=== PATIENT | female | born 1990 | race Caucasian/White ===

== ENCOUNTER 2018-03-05 13:57 | Emergency (ER) | payer MEDICAID ==
[2018-03-05 14:49] LABS: Absolute Lymphocytes (CBC) 0.6 K/uL (0.7-4.9); Absolute Monocytes 0.3 K/uL (0.1-1.3); Absolute Neutrophil 3.4 K/uL (1.8-8.0); Basophils % 0.2 % (0-1.3); Eosinophils % 2.7 % (0-4.4); Hematocrit 27.4 % (36.0-45.0); Lymphocytes % 12.7 % (15.3-44.8); MCH 26.8 pg (27.0-35.0); MCV 79.9 fL (80-100); MPV 7.6 fL (7.6-11.3); Monocytes % 7.3 % (3.3-12.3); RBC Red Blood Cell Count 3.43 M/uL (3.86-4.86)
[2018-03-05 15:12] LABS: Urine Blood TRACE (NEG); Urine Glucose NEGATIVE (NEG); Urine Protein NEGATIVE (NEG); Urine Specific Gravity 1.015 (1.005-1.030)
[2018-03-05 16:26] LABS: Urine Bacteria <20 /HPF (<20); Urine Culture Reflex Order NOT NEEDED; Urine RBC <5 /HPF (NONE SEEN)
--- NOTE | 2018-03-05 16:47 | EDPHYS ---
Physician Documentation [facility] Name: Jade Alvarado Age: 27 yrs Sex: Female : 1990 Arrival Date: 03/05/2018 Time: 14:01 Bed 24 Private MD: None, None ED Physician Panfilo Sanford HPI: 03/05 15:30 This 27 yrs old Female presents to ER via Ambulatory with complaints of Post pm1 Problem. 15:30 The patient presents with lightheadedness, swelling to feet bilaterally. Onset: The pm1 symptoms/episode began/occurred today. Context: occurred at home, occurred while the patient was eating lunch. just prior to the episode the patient experienced no apparent symptoms. Modifying factors: The symptoms are alleviated by nothing, the symptoms are aggravated by changing position. Associated signs and symptoms: Pertinent negatives: abdominal pain, blurred vision, chest pain, diaphoresis, focal weakness, headache, nausea, numbness, shortness of breath, tingling, vomiting. Severity of symptoms: in the emergency department the symptoms lightheartedness resolved. Patient's baseline: Neuro: alert and fully oriented, Motor: no deficits, Ambulation: walks without assistance, Speech: normal. The patient has not experienced similar symptoms in the past. The patient has been recently seen by a physician: Patient with 3 days ago. No complications with surgery. Reports gestational diabetes managed with dietary. 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 - Social history:: Smoking status: Patient/guardian denies using tobacco. - Ebola Screening: : No symptoms or risks identified at this time. ROS: 15:30 Constitutional: Negative for fever, chills, and weight loss, Eyes: Negative for injury, pm1 pain, redness, and discharge, ENT: Negative for injury, pain, and discharge, Neck: Negative for injury, pain, and swelling, Respiratory: Negative for shortness of breath, cough, wheezing, and pleuritic chest pain, Abdomen/GI: Negative for abdominal pain, nausea, vomiting, diarrhea, and constipation, Back: Negative for injury and pain, : Negative for injury, bleeding, discharge, and swelling, MS/Extremity: Negative for injury and deformity, Skin: Negative for injury, rash, and discoloration. 15:30 Cardiovascular: Positive for swelling to ankles and feet bilaterally. 15:30 Neuro: Positive for dizziness, Negative for altered mental status, headache, numbness, tingling, weakness. Exam: 15:30 Constitutional: This is a well developed, well nourished patient who is awake, alert, pm1 and in no acute distress. Head/Face: Normocephalic, atraumatic. Eyes: Pupils equal round and reactive to light, extra-ocular motions intact. Lids and lashes normal. Conjunctiva and sclera are non-icteric and not injected. Cornea within normal limits. Periorbital areas with no swelling, redness, or edema. ENT: Nares patent. No nasal discharge, no septal abnormalities noted. Tympanic membranes are normal and external auditory canals are clear. Oropharynx with no redness, swelling, or masses, exudates, or evidence of obstruction, uvula midline. Mucous membranes moist. Neck: Trachea midline, no thyromegaly or masses palpated, and no cervical lymphadenopathy. Supple, full range of motion without nuchal rigidity, or vertebral point tenderness. No Meningismus. Chest/axilla: Normal chest wall appearance and motion. Nontender with no deformity. No lesions are appreciated. Cardiovascular: Regular rate and rhythm with a normal S1 and S2. No gallops, murmurs, or rubs. Normal PMI, no JVD. No pulse deficits. Respiratory: Lungs have equal breath sounds bilaterally, clear to auscultation and percussion. No rales, rhonchi or wheezes noted. No increased work of breathing, no retractions or nasal flaring. Abdomen/GI: Soft, non-tender, with normal bowel sounds. No distension or tympany. No guarding or rebound. No evidence of tenderness throughout. 15:30 Back: No spinal tenderness. No costovertebral tenderness. Full range of motion. Skin: Warm, dry with normal turgor. Normal color with no rashes, no lesions, and no evidence of cellulitis. MS/ Extremity: Pulses equal, no cyanosis. Neurovascular intact. Full, normal range of motion. 15:30 Abdomen/GI: Inspection: Patient with clean dressing over scar. No drainage, redness, warmth present surrounding dressing, Bowel sounds: normal, Palpation: abdomen is soft and non-tender. 15:30 Neuro: Orientation: is normal, Mentation: is normal, Cranial nerves: CN II- XII are normal as tested, Cerebellar function: normal finger to nose testing, heel to williamson testing is normal, Motor: is normal, moves all fours, Sensation: is normal, no obvious gross deficits, Gait: is steady, at a normal pace, without difficulty. Vital Signs: 14:07 BP 127 / 81; Pulse 98; Resp 16 S; Temp 98.6(O); Pulse Ox 98% on R/A; Weight 56.7 kg aa5 (R); Height 4 ft. 11 in. (149.86 cm) (R); Pain 0/10; 14:23 BP 139 / 80 LA Supine (auto/reg); Pulse 80; Pulse Ox 97% on R/A; jp3 14:25 BP 142 / 81 LA Sitting (auto/reg); Pulse 97; Pulse Ox 97% on R/A; jp3 14:27 BP 147 / 91 LA Standing (auto/reg); Pulse 96; Pulse Ox 100% on R/A; jp3 14:50 BP 145 / 91; Pulse 92; Resp 17; Pulse Ox 99% on R/A; kr2 16:08 BP 134 / 88; Pulse 72; Resp 17; Pulse Ox 98% on R/A; kr2 17:37 BP 135 / 83; Pulse 78; Resp 18; Pulse Ox 98% ; kr2 14:07 Body Mass Index 25.25 (56.70 kg, 149.86 cm) aa5 MDM: 14:11 Patient medically screened. pm1 16:44 Data reviewed: vital signs. Data interpreted: Pulse oximetry: on room air is 98 %. pm1 Interpretation: normal. Counseling: I had a detailed discussion with the patient and/or guardian regarding: the historical points, exam findings, and any diagnostic results supporting the discharge/admit diagnosis, lab results, the need for outpatient follow up, to return to the emergency department if symptoms worsen or persist or if there are any questions or concerns that arise at home. 03/05 14:29 Order name: CBC with Diff; Complete Time: 15:13 pm1 03/05 14:29 Order name: BMP; Complete Time: 15:49 pm1 03/05 14:29 Order name: Urine Microscopic Only; Complete Time: 16:29 pm1 03/05 15:03 Order name: Urine Dipstick--Ancillary (enter results); Complete Time: 15:13 eb 03/05 15:03 Order name: Urine --Ancillary (enter results); Complete Time: 15:13 eb 03/05 14:29 Order name: IV Saline Lock; Complete Time: 14:49 pm1 03/05 14:29 Order name: Urine Dipstick-Ancillary (obtain specimen); Complete Time: 14:59 pm1 03/05 14:29 Order name: Orthostatic Blood Pressure; Complete Time: 14:49 pm1 03/05 14:40 Order name: EKG; Complete Time: 14:41 pm1 03/05 14:40 Order name: EKG - Nurse/Tech; Complete Time: 14:49 pm1 Administered Medications: 15:59 Drug: NS 0.9% 1000 ml Route: IV; Rate: 1000 ml; Site: right forearm; kr2 17:36 Follow up: Response: No adverse reaction; IV Status: Completed infusion kr2 Point of Care Testing: Blood Glucose: 14:17 Blood Glucose: 97 mg/dL; jp3 Ranges: Critical Glucose Levels:Adult <50 mg/dl or >400 mg/dl <40 mg/dl or >180 mg/dl Disposition: 18:50 Co-signature as Attending Physician, Panfilo Sanford MD. rn Disposition: 03/05/18 16:47 Discharged to Home. Impression: Anemia, unspecified, Dehydration. - Condition is Stable. - Medication Reconciliation Form, Thank You Letter, Antibiotic Education, Prescription Opioid Use form. - Follow up: Emergency Department; When: As needed; Reason: Worsening of condition. Follow up: Private Physician; When: 2 - 3 days; Reason: Recheck today's complaints, Continuance of care, Re-evaluation by your physician. - Problem is new. - Symptoms have improved. Signatures: Dispatcher [employer] EDMS Panfilo Sanford MD MD rn Calderon, Audri, RN RN aa5 Lázaro Franco, ADULT CROSSING GUARD ADULT CROSSING GUARD pm1 Juany Conde RN RN kr2 Corrections: (The following items were deleted from the chart) 17:39 16:47 03/05/2018 16:47 Discharged to Home. Impression: Anemia, unspecified; kr2 Dehydration. Condition is Stable. Forms are Medication Reconciliation Form, Thank You Letter, Antibiotic Education, Prescription Opioid Use. Follow up: Emergency Department; When: As needed; Reason: Worsening of condition. Follow up: Private Physician; When: 2 - 3 days; Reason: Recheck today's complaints, Continuance of care, Re-evaluation by your physician. Problem is new. Symptoms have improved. pm1
--- NOTE | 2018-03-05 16:47 | ER ---
Nurse's Notes [facility] Name: Jade Alvarado Age: 27 yrs Sex: Female : 1990 Arrival Date: 03/05/2018 Time: 14:01 Bed 24 Private MD: None, None Diagnosis: Anemia, unspecified;Dehydration Presentation: 03/05 14:05 Presenting complaint: Patient states: "I had a on Wednesday and today I've been aa5 feeling like I want to pass out since around lunch time and my legs are swollen". Pt reports mild vaginal bleeding. Transition of care: patient was not received from another setting of care. Onset of symptoms was March 05, 2018. Risk Assessment: Do you want to hurt yourself or someone else? Patient reports no desire to harm self or others. Initial Sepsis Screen: Does the patient meet any 2 criteria? No. Patient's initial sepsis screen is negative. Does the patient have a suspected source of infection? No. Patient's initial sepsis screen is negative. Care prior to arrival: None. 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 - Social history:: Smoking status: Patient/guardian denies using tobacco. - Ebola Screening: : No symptoms or risks identified at this time. Screenin:34 Abuse screen: Denies threats or abuse. Denies injuries from another. Nutritional kr2 screening: No deficits noted. Tuberculosis screening: No symptoms or risk factors identified. Fall Risk IV access (20 points). Gait- Normal/Bed Rest/Wheelchair (0 pts). Assessment: 14:29 General: Appears in no apparent distress. comfortable, well groomed, well developed, kr2 well nourished, Behavior is calm, cooperative, appropriate for age. Pain: Denies pain. Neuro: Level of Consciousness is awake, alert, obeys commands, Oriented to person, place, time, situation, Appropriate for age. Neuro: Reports dizziness, since today. Cardiovascular: Heart tones S1 S2 present Capillary refill < 3 seconds in bilateral fingers Patient's skin is warm and dry. Edema is 1+ to left foot and right foot pitting to left foot and right foot Rhythm is regular. Respiratory: Airway is patent Respiratory effort is even, unlabored, Respiratory pattern is regular, symmetrical. GI: Abdomen is flat, non-distended, Patient currently denies nausea, vomiting. : Reports recent , bleeding is "red and almost stopped". EENT: Oral mucosa is moist. Derm: Skin is healthy with good turgor, Skin is dry, Skin is pale, pink, Skin temperature is warm incision with dressing clean dry and intact. No redness or tenderness to surrounding skin. Patient states her doctor told her to leave the dressing in place until she follows up with him. Musculoskeletal: Circulation, motion, and sensation intact. 15:30 Reassessment: Patient appears in no apparent distress at this time. Patient and/or kr2 family updated on plan of care and expected duration. Pain level reassessed. Patient is alert, oriented x 3, equal unlabored respirations, skin warm/dry/pink. Patient states feeling better. 17:38 Reassessment: Patient appears in no apparent distress at this time. Patient and/or kr2 family updated on plan of care and expected duration. Pain level reassessed. Patient is alert, oriented x 3, equal unlabored respirations, skin warm/dry/pink. Swelling to bilateral feet decreased since arrival Patient states feeling better. Patient states symptoms have improved. Vital Signs: 14:07 BP 127 / 81; Pulse 98; Resp 16 S; Temp 98.6(O); Pulse Ox 98% on R/A; Weight 56.7 kg aa5 (R); Height 4 ft. 11 in. (149.86 cm) (R); Pain 0/10; 14:23 BP 139 / 80 LA Supine (auto/reg); Pulse 80; Pulse Ox 97% on R/A; jp3 14:25 BP 142 / 81 LA Sitting (auto/reg); Pulse 97; Pulse Ox 97% on R/A; jp3 14:27 BP 147 / 91 LA Standing (auto/reg); Pulse 96; Pulse Ox 100% on R/A; jp3 14:50 BP 145 / 91; Pulse 92; Resp 17; Pulse Ox 99% on R/A; kr2 16:08 BP 134 / 88; Pulse 72; Resp 17; Pulse Ox 98% on R/A; kr2 17:37 BP 135 / 83; Pulse 78; Resp 18; Pulse Ox 98% ; kr2 14:07 Body Mass Index 25.25 (56.70 kg, 149.86 cm) aa5 ED Course: 14:01 Patient arrived in ED. sb2 14:01 None, None is Private Physician. sb2 14:06 Triage completed. aa5 14:06 Arm band placed on. aa5 14:10 Lázaro Franco, [place] is PHCP. pm1 14:10 Panfilo Sanford MD is Attending Physician. pm1 14:17 Bed in low position. Call light in reach. Side rails up X 1. Warm blanket given. Pillow jp3 given. Pulse ox on. NIBP on. 14:35 Initial lab(s) drawn, by me, sent to lab. Inserted saline lock: 22 gauge in right jp3 forearm, using aseptic technique. Blood collected. 14:40 Urine collected: clean catch specimen, clear, ibis colored, Amount Voided: 60mL. jp3 14:57 EKG done, by ED staff, reviewed by Lázaro Franco NP. jp3 14:59 Urine Microscopic Only Sent. jp3 14:59 BMP Sent. jp3 15:59 Juany Conde, RN is Primary Nurse. kr2 16:09 No provider procedures requiring assistance completed. kr2 17:37 IV discontinued, intact, bleeding controlled, No redness/swelling at site. Pressure kr2 dressing applied. Administered Medications: 15:59 Drug: NS 0.9% 1000 ml Route: IV; Rate: 1000 ml; Site: right forearm; kr2 17:36 Follow up: Response: No adverse reaction; IV Status: Completed infusion kr2 Point of Care Testing: Blood Glucose: 14:17 Blood Glucose: 97 mg/dL; jp3 Ranges: Outcome: 16:47 Discharge ordered by . pm1 17:36 Discharged to home ambulatory, with family. kr2 17:36 Condition: good 17:36 Discharge instructions given to patient, family, Instructed on discharge instructions, follow up and referral plans. Demonstrated understanding of instructions, follow-up care. 17:39 Patient left the ED. kr2 Signatures: Lisa Brownlee RN RN aa5 Lázaro Franco, GEOTHERMAL POWERPLANT MECHANIC GEOTHERMAL POWERPLANT MECHANIC pm1 Juany Conde RN RN kr2 Johana Cuevas sb2 Harshal Cyr jp3 Corrections: (The following items were deleted from the chart) 14:50 14:49 Reassessment: sobeida vidales
[2018-03-05] MEDS ORDERED: NA CHLORIDE 0.9% 1,000 ML ONE (17:02)
--- NOTE | 2018-03-06 10:22 | EKG ---
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
== END 2018-03-05 17:39 | disposition home or self-care (01) ==
LOC: ER 13:57
DX: O90.81 Anemia of the puerperium (principal); D64.9 Anemia, unspecified; E86.0 Dehydration; Z88.6 Allergy status to analgesic agent; Z91.018 Allergy to other foods
CPT/HCPCS: 36415; 80048; 81003; 81015; 81025; 82962; 85025; 93005; 96360; 96361; 99284; J7030

== ENCOUNTER 2023-03-07 09:57 | Emergency (ER) | payer OTHER ==
--- OUTSIDE RECORDS SUMMARY | 2023-03-07 10:01 | XMS REPORT | Continuity of Care Document ---
:1990 Author Organization [facility] t Address [address] [facility] [address] [place] [id number] Care Team Providers Name Role Phone Pcp, Patient Does Not Have A Primary Care Physician [id number] DORY URBAN Attending Clinician Unavailable Rajni LOVE, Dory Villar Attending Clinician Pob, Ad[facility] Lab Main Attending Clinician Unavailable AIDEE BOJORQUEZ Attending Clinician Unavailable Aidee Bojorquez MD Attending Clinician [phone] Doctor Unassigned, [place] Attending Clinician Unavailable GEORGETTE Attending Clinician Unavailable Rosemary Garcia Attending Clinician Jing Lomeli MD Attending Clinician JING LOMELI Attending Clinician Unavailable Robert Lawson DO Attending Clinician Celena Page MD Attending Clinician Watson Santoyo MD Attending Clinician Jordan GLASS, Oksana Fischer Attending Clinician Unavailable GEORGETTE Admitting Clinician Unavailable Payers Payer Name Policy Type Policy Number Effective Date Expiration Date Critical access hospital [id number] 2023 [facility] [place] ST[place] 00:00:00 [place] [facility] [place] [id number] 2023 00:00:00 [facility] [id number] 2017 2018 CHILDREN'S STAR 00:00:00 00:00:00 (MEDICAID HMO) Problems Condition Condition Condition Status Onset Resolution Last Treating Co mments Source Name Details Category Date Date Treatment Clinician Date Incomplete Incomplete Disease Active 2022-05 U nivers spontaneou spontaneou 0-05 [place] [facility] Supervisio Supervisio Disease Active U nivers n of high n of high 02-22 ity of risk risk 00:00: [place] [facility] in third in third Branch trimester trimester GDM, class GDM, class Disease Active U nivers A1 A1 02-22 ity of 00:00: [place] [facility] Not immune Not immune Disease Active U nivers to rubella to rubella 02-22 it y of 00:00: [place] 00 [facility] Allergies, Adverse Reactions, Alerts Allergy Allergy Status Severity Reaction(s) Onset Inactive Treating Comm ents Source Name Type Date Date Clinician Hydrocod Propensi Active Hives 2017-05 Univer s one ty to 0-02 ity of adverse 00:00: [place] reaction [facility] HYDROCOD DRUG Active Hives 2017-05 Univers ONE INGREDI 0-02 ity of 00:00: [place] 00 [facility] Gluten Propensi Active Shortness of Un svitlana ty to Breath 25 ity of adverse 00:00: [place] reaction 00 [facility] CODEINE DRUG Active Hives Univers INGREDI 9-25 ity of 00:00: [place] 00 [facility] GLUTEN DRUG Active Rash Univers INGREDI 9- ity of 00:00: [place] 00 [facility] Codeine Propensi Active Nausea Univers ty to and/or 25 ity of adverse Vomiting 00:00: [place] reaction 00 [facility] Social History Social Habit Start Date Stop Date Quantity Comments Source Sexual orientation [facility]iver [facility] ASSERTION [facility] Exposure to Not sure University of SARS-CoV-2 (event) [facility] Alcohol intake 2023-03-04 2023-03-04 Current University of 00:00:00 00:00:00 non-drinker of [facility] alcohol Branch (finding) History of Social 2023-02-18 2023-02-18 Univers ity of function 00:00:00 00:00:00 [facility] Tobacco use and 2023-02-18 2023-02-18 Smokeless Universit y of exposure 00:00:00 00:00:00 tobacco non-user [facility] Sex Ass[birth year] At [birth year] Universit y of 00:00:00 00:00:00 [facility] Smoking Status Start Date Stop Date Source Never smoked tobacco [facility] Medications Ordered Filled Start Stop Current Ordering Indication Dosage Frequency Signature Comments Components Source Medication Medication Date Date Medication? Clinician (SIG) Name Name cefdinir 2022- Yes [id number] 300mg Take 1 U nivers 300 mg 9-03-08 capsule by ity of capsule 00:00: 04:59 mouth [place] 00 :00 every 12 Medical (twelve) Branch hours for 10 days. cefdinir 2022- Yes [id number] 300mg Take 1 U nivers 300 mg 9-03-08 capsule by ity of capsule 00:00: 04:59 mouth [place] 00 :00 every 12 Medical (twelve) Branch hours for 10 days. cefdinir 2022- Yes [id number] 300mg Take 1 U nivers 300 mg -03-08 capsule by ity of capsule 00:00: 04:59 mouth [place] 00 :00 every 12 Medical (twelve) Branch hours for 10 days. cefdinir 2022- Yes [id number] 300mg Take 1 U nivers 300 mg 9-03-08 capsule by ity of capsule 00:00: 04:59 mouth [place] 00 :00 every 12 Medical (twelve) Branch hours for 10 days. cefdinir 2022- Yes [id number] 300mg Take 1 U nivers 300 mg -03-08 capsule by ity of capsule 00:00: 04:59 mouth [place] 00 :00 every 12 Medical (twelve) Branch hours for 10 days. PNV 2022- No Take by Univers no.95/[place] 02-18 mouth. ity o f us 10:04: 00:00 [place] fum/folic 03 :00 Medical ac Branch ( ORAL) Yes Take by Univer s vit/iron 02-18 mouth. ity of fum/folic 09:50: [place] ac 45 Medical ( 1 Branch PLUS 1 ORAL) Yes Take by Univer s vit/iron 9-21 mouth. ity of fum/folic 09:50: [place] [id number] Medical ( 1 Branch PLUS 1 ORAL) Yes Take by Univer s vit/iron 9-21 mouth. ity of fum/folic 09:50: [place] [id number] Medical ( 1 Branch PLUS 1 ORAL) Yes Take by Univer s vit/iron 9-21 mouth. ity of fum/folic 09:50: [place] [id number] Medical ( 1 Branch PLUS 1 ORAL) Yes Take by Univer s vit/iron 9-21 mouth. ity of fum/folic 09:50: [place] [id number] Medical ( 1 Branch PLUS 1 ORAL) Yes Take by Univer s vit/iron 9-21 mouth. ity of fum/folic 09:50: [place] [id number] Medical ( 1 Branch PLUS 1 ORAL) Yes Take by Univer s vit/iron 9-21 mouth. ity of fum/folic 09:50: [place] [id number] Medical ( 1 Branch PLUS 1 ORAL) Yes Take by Univer s vit/iron 9-21 mouth. ity of fum/folic 09:50: [place] [id number] Medical ( 1 Branch PLUS 1 ORAL) Yes Take by Univer s vit/iron 9-21 mouth. ity of fum/folic 09:50: [place] [id number] Medical ( 1 Branch PLUS 1 ORAL) Yes Take by Univer s vit/iron 9-21 mouth. ity of fum/folic 09:50: [place] [id number] Medical ( 1 Branch PLUS 1 ORAL) Yes Take by Univer s vit/iron 9-21 mouth. ity of fum/folic 09:50: [place] [id number] Medical ( 1 Branch PLUS 1 ORAL) triamcinolo 2020- No [id number] 40mg U nivers ne 12-15 ity of acetonide 23:00: 21:52 [place] (KENALOG) 00 :00 Medical injection Branch 40 mg triamcinolo 2020- No [id number] 40mg 40 mg, Univers ne 12-15 Intramuscu ity of acetonide 23:00: 21:52 [place], ONCE, [place] (KE[place]LOG) 00 :00 1 dose, Medical injection Sun Branch 40 mg 12/15/20 at 1800, Routine hydrOXYzine 2020- No [id number] 25mg Take 1 Univers 25 mg 12-15-29 tablet by ity of tablet 00:00: 04:59 mouth [place] 00 :00 every 6 Medical (six) Branch hours as needed for Itching for up to 10 days. triamcinolo 2020- No [id number] Apply to [facility] ne 12-15 07-24 area(s) 2 ity of acetonide 00:00: 04:59 (two) [place] 0.1 % 00 :00 times Medical ointment daily for Branch 5 days. cephALEXin Yes Univers 500 mg 7-15 ity of capsule 00:00: [place] 00 Medical Branch cephALEXin Yes Univers 500 mg 7-15 ity of capsule 00:00: [place] Medical [place] cephALEXin 2022- No Univer s 500 mg 7-15 - ity of capsule 00:00: 00:00 [place] 00 :00 Medical Branch dexamethaso 2019-05- No 10mg 10 mg, Uni vers ne 0-12 10-12 Oral, ity of (DECADRON 14:15: 13:05 ONCE, 1 [place] PHOSPHATE[place] 00 :00 dose, Mon Medi jessica injection 03/11/20 Branch 10 mg at 0915, Routine hydrOXYzine 2019-05 Yes [id number] 10mg Take 1 Univers 10 mg 0-12 tablet by ity of tablet 00:00: mouth [place] 00 every 6 Medical (six) Branch hours. hydrOXYzine 2019-05 Yes [id number] 10mg Take 1 Univers 10 mg 0-12 tablet by ity of tablet 00:00: mouth [place] 00 every 6 Medical (six) Branch hours. hydrOXYzine 2020- Yes [id number] 10mg Take 1 Univers 10 mg 0-12 tablet by ity of tablet 00:00: mouth [place] 00 every 6 Medical (six) Branch hours. hydrOXYzine 2019-05- No [id number] 10mg Take 1 Univers 10 mg 0-12 -21 tablet by ity of tablet 00:00: 00:00 mouth [place] 00 :00 every 6 Medical (six) Branch hours. PNV 2019-0 Yes Take by Univers no.95/[place] 8-19 mouth. ity of us 18:23: [place] fum/folic 59 Medical ac Branch ( ORAL) PNV 2019-0 Yes Take by Univers no.95/[place] 8-19 mouth. ity of us 18:23: [place] fum/folic 59 Medical ac Branch ( ORAL) PNV 2019-0 Yes Take by Univers no.95/[place] 8-19 mouth. ity of us 18:23: [place] fum/folic 59 Medical ac Branch ( ORAL) PNV 2019-0 Yes Take by Univers no.95/[place] 8-19 mouth. ity of us 18:23: [place] fum/folic 59 Medical ac Branch ( ORAL) PNV 2019-0 Yes Take by Univers no.95/[place] 8-19 mouth. ity of us 13:23: [place] fum/folic 59 Medical ac Branch ( ORAL) PNV 2018- Yes Take by Univers no.95/[place] 1-12 mouth. ity of us 15:47: [place] fum/folic 12 Medical ac Branch ( ORAL) PNV 2018- Yes Take by Univers no.95/[place] 1-12 mouth. ity of us 15:47: [place] fum/folic 12 Medical ac Branch ( ORAL) Immunizations Ordered Filled Date Status Comments Source Immunization Name Immunization Name Influenza Virus 2018-04-11 Completed Universit y of Vaccine Quad IM 3+ 00:00:00 [facility] Influenza Virus 2018-04-11 Completed Universit y of Vaccine Quad IM 3+ 00:00:00 [facility] Influenza Virus 2018-04-11 Completed Universit y of Vaccine Quad IM 3+ 00:00:00 [facility] Influenza Virus 2018-04-11 Completed Universit y of Vaccine Quad IM 3+ 00:00:00 [facility] Influenza Virus 2018-04-11 Completed Universit y of Vaccine Quad IM 3+ 00:00:00 [facility] Influenza Virus 2018-04-11 Completed Universit y of Vaccine Quad IM 3+ 00:00:00 [facility] TDAP 2017-12-08 Completed University of 00:00:00 [facility] Tdap 2017-12-08 Completed University of 00:00:00 [facility] Tdap 2017-12-08 Completed University of 00:00:00 [facility] Tdap 2017-12-08 Completed University of 00:00:00 [facility] Branch Tdap 2017-12-08 Completed University of 00:00:00 [facility] TDAP 2017-12-08 Completed University of 00:00:00 [facility] TDAP Unknown Completed [facility] Influenza Virus Unknown Completed Universit y of Vaccine Quad IM 3+ [facility] TDAP Unknown Completed [facility] Influenza Virus Unknown Completed Universit y of Vaccine Quad IM 3+ [facility] TDAP Unknown Completed [facility] Influenza Virus Unknown Completed Universit y of Vaccine Quad IM 3+ [facility] TDAP Unknown Completed [facility] Influenza Virus Unknown Completed Universit y of Vaccine Quad IM 3+ [facility] TDAP Unknown Completed [facility] Influenza Virus Unknown Completed Universit y of Vaccine Quad IM 3+ [facility] TDAP Unknown Completed [facility] Influenza Virus Unknown Completed Universit y of Vaccine Quad IM 3+ [facility] TDAP Unknown Completed [facility] Influenza Virus Unknown Completed Universit y of Vaccine Quad IM 3+ [facility] TDAP Unknown Completed [facility] Influenza Virus Unknown Completed Universit y of Vaccine Quad IM 3+ [facility] TDAP Unknown Completed [facility] Influenza Virus Unknown Completed Universit y of Vaccine Quad IM 3+ [facility] TDAP Unknown Completed [facility] Influenza Virus Unknown Completed Universit y of Vaccine Quad IM 3+ [facility] TDAP Unknown Completed [facility] Influenza Virus Unknown Completed Universit y of Vaccine Quad IM 3[facility] TDAP Unknown Completed [facility] Influenza Virus Unknown Completed Universit y of Vaccine Quad IM 3[facility] Vital Signs Vital Name Observation Time Observation Value Comments Source Systolic blood 2023-03-04 21:11:00 130 mm[Hg] Univer sity of pressure [facility] Diastolic blood 2023-03-04 21:11:00 82 mm[Hg] Unive rsity of pressure [facility] Heart rate 2023-03-04 21:11:00 78 /min Universi [facility] [place] Body temperature 2023-03-04 21:11:00 36.78 Teresa Univ ers[facility] Respiratory rate 2023-03-04 21:11:00 17 /min [facility] Body height 2023-03-04 21:11:00 149.9 cm Universi ty of [place] [facility] Body weight 2023-03-04 21:11:00 57.153 kg Universi ty of [place] [facility] BMI 2023-03-04 21:11:00 25.45 kg/m2 Universi ty of [facility] Branch Systolic blood 2023-02-25 22:49:00 133 mm[Hg] Univer sity of pressure [facility] Branch Diastolic blood 2023-02-25 22:49:00 73 mm[Hg] Unive rsity of pressure [facility] Branch Heart rate 2023-02-25 22:49:00 90 /min Universi ty of [facility] Body temperature 2023-02-25 22:49:00 37 Teresa Univ ersity of [facility] Branch Respiratory rate 2023-02-25 22:49:00 17 /min Univ ersity of [facility] Body height 2023-02-25 22:49:00 149.9 cm Universi ty of [place] [facility] Body weight 2023-02-25 22:49:00 58.06 kg Universi ty of [place] [facility] BMI 2023-02-25 22:49:00 25.85 kg/m2 Universi ty of [facility] Branch Oxygen saturation in 2023-02-25 22:49:00 100 /min [facility] Arterial blood by [facility] Pulse oximetry Branch Systolic blood 2023-02-18 14:49:00 122 mm[Hg] Univer sity of pressure [facility] Diastolic blood 2023-02-18 14:49:00 71 mm[Hg] Unive rsity of pressure [facility] Branch Heart rate 2023-02-18 14:49:00 80 /min Universi ty of [facility] Branch Body temperature 2023-02-18 14:49:00 36.61 Teresa Univ ersity of [facility] Respiratory rate 2023-02-18 14:49:00 18 /min Univ ersity of [facility] Branch Body height 2023-02-18 14:49:00 160 cm Universi ty of [place] [facility] Body weight 2023-02-18 14:49:00 58.514 kg Universi ty of [facility] Branch BMI 2023-02-18 14:49:00 22.85 kg/m2 Universi ty of [place] [facility] Systolic blood 2020-12-15 21:43:00 125 mm[Hg] Univer sity of pressure [place] [facility] Diastolic blood 2020-12-15 21:43:00 79 mm[Hg] Unive rsity of pressure [place] [facility] Heart rate 2020-12-15 21:43:00 78 /min Universi ty of [place] [facility] Body temperature 2020-12-15 21:43:00 36.83 Teresa Univ ersity of [place] [facility] Respiratory rate 2020-12-15 21:43:00 16 /min Univ ersity of [place] [facility] Body height 2020-12-15 21:43:00 149.9 cm Universi ty of [place] [facility] Body weight 2020-12-15 21:43:00 49.896 kg Universi ty of [place] [facility] BMI 2020-12-15 21:43:00 22.22 kg/m2 Universi ty of [place] [facility] Oxygen saturation in 2020-12-15 21:43:00 98 /min University of Arterial blood by [place] jessica Pulse oximetry Branch Systolic blood 2020-03-11 12:46:00 130 mm[Hg] Univer sity of pressure [place] [facility] Diastolic blood 2020-03-11 12:46:00 90 mm[Hg] Unive rsity of pressure [place] [facility] Heart rate 2020-03-11 12:46:00 95 /min Universi ty of [place] [facility] Body temperature 2020-03-11 12:46:00 36.78 Teresa Univ ersity of [place] [facility] Respiratory rate 2020-03-11 12:46:00 16 /min Univ ersity of [place] [facility] Body weight 2020-03-11 12:46:00 47.628 kg Universi ty of [place] [facility] BMI 2020-03-11 12:46:00 21.21 kg/m2 Universi ty of [place] [facility] Oxygen saturation in 2020-03-11 12:46:00 100 /min University of Arterial blood by [facility] jessica Pulse oximetry Branch Systolic blood 2019-01-16 18:19:00 122 mm[Hg] Univer sity of pressure [place] [facility] Diastolic blood 2019-01-16 18:19:00 80 mm[Hg] Unive rsity of pressure [place] [facility] Heart rate 2019-01-16 18:19:00 77 /min Universi ty of [place] [facility] Body temperature 2019-01-16 18:19:00 36.72 Teresa Univ ersity of [place] [facility] Respiratory rate 2019-01-16 18:19:00 16 /min Univ ersity of [facility] Branch Body height 2019-01-16 18:19:00 149.9 cm Universi ty of [place] [facility] Body weight 2019-01-16 18:19:00 47.446 kg Universi ty of [place] [facility] BMI 2019-01-16 18:19:00 21.13 kg/m2 Universi ty of [facility] Branch Systolic blood 2019-01-16 18:19:00 122 mm[Hg] Univer sity of pressure [place] [facility] Diastolic blood 2019-01-16 18:19:00 80 mm[Hg] Unive rsity of pressure [facility] Branch Heart rate 2019-01-16 18:19:00 77 /min Universi ty of [facility] Body temperature 2019-01-16 18:19:00 36.72 Teresa Univ ersity of [facility] Branch Respiratory rate 2019-01-16 18:19:00 16 /min Univ ersity of [facility] Body height 2019-01-16 18:19:00 149.9 cm Universi ty of [place] [facility] Body weight 2019-01-16 18:19:00 47.446 kg Universi ty of [place] [facility] BMI 2019-01-16 18:19:00 21.13 kg/m2 Universi ty of [place] [facility] Systolic blood 2019-01-15 15:55:00 140 mm[Hg] Univer sity of pressure [place] [facility] Diastolic blood 2019-01-15 15:55:00 79 mm[Hg] Unive rsity of pressure [facility] Branch Heart rate 2019-01-15 15:55:00 72 /min Universi ty of [facility] Body temperature 2019-01-15 15:55:00 36.67 Teresa Univ ersity of [place] [facility] Respiratory rate 2019-01-15 15:55:00 18 /min Univ ersity of [place] [facility] [place] Body weight 2019-01-15 15:55:00 47.174 kg Universi ty of [place] [facility] BMI 2019-01-15 15:55:00 21.01 kg/m2 Universi ty of [facility] Oxygen saturation in 2019-01-15 15:55:00 100 /min [facility] Arterial blood by [facility] Pulse oximetry Branch Procedures Procedure Date / Time Performing Clinician Source Performed TOTAL BETA HCG ASSAY 2023-03-04 21:55:00 Dory Urban [facility] US OB TRANSVAGINAL 2023-03-04 21:25:12 Dory Urban [facility] ASSIGNMENT OF BENEFITS 2023-02-25 23:50:59 Doctor Unassigned, No [facility] COMP. METABOLIC PANEL 2023-02-25 23:47:00 [place] [facility] ([id number]) [facility] TOTAL BETA HCG ASSAY 2023-02-25 23:47:00 [place] [facility] CBC WITH DIFF 2023-02-25 23:47:00 [place] [facility] URINALYSIS 2023-02-25 23:47:00 [place] [facility] HB ABO GROUPING 2023-02-25 23:47:00 [facility]REFUS[facility] FOR 2023-02-25 22:33:53 [place] [facility]assigned[facility] [place] [facility] OB TRANSVAGINAL 2023-02-18 15:21:25 Dory Urban [facility] ASSIGNMENT OF BENEFITS 2023-02-18 14:40:04 Doctor Unassigned, No [facility] POCT TEST 2023-02-18 00:00:00 Dory Urban [facility] NOTICE OF PRIVACY 2020-03-11 12:41:18 Doctor Unassigned, No [facility] CONSENT/REFUSAL FOR 2020-03-11 12:40:59 [place] Unassigned, [place] [facility] AND [facility] URINALYSIS 2019-01-15 16:44:00 Watson Santoyo [facility] POCT TEST 2019-01-15 16:44:00 Watson Santoyo [facility] NOTICE OF PRIVACY 2019-01-15 16:24:34 Doctor Unassigned, No [facility] TEST, SERUM 2019-01-15 16:20:00 Watson Santoyo [facility] HEPATIC FUNCTION PANEL 2019-01-15 16:20:00 Watson Santoyo [facility] ([id number]) (ALB,T.PRO,BILI [facility] Branch T,BU/BC,ALT,AST,ALK PHOS) BASIC METABOLIC PANEL 2019-01-15 16:20:00 Watson Santoyo [facility] (NA, K, CL, CO2, Medical Branch GLUCOSE, BUN, CREATININE, CA) TOTAL BETA HCG ASSAY 2019-01-15 16:20:00 Watson Santoyo [facility] CBC WITH DIFFERENTIAL 2019-01-15 16:20:00 Watson Santoyo [facility] PROTHROMBIN TIME / INR 2019-01-15 16:20:00 Watson Santoyo [facility] ACTIVATED PARTIAL 2019-01-15 16:20:00 Watson Santoyo [facility] THRMPLAS [facility] TYPE AND SCREEN 2019-01-15 16:18:00 Santoyo [facility] o f [facility] CONSENT/REFUSAL FOR 2019-01-15 15:44:28 Doctor Unassigned, No Un [facility] DIAGNOSIS AND TREATMENT Name [facility] Encounters Start End Encounter Admission Attending Care Care Encounter Source Date/Time Date/Time Type Type Clinicians Facility Department ID 2021-03-28 Emergency [facility] [id number] Univers 22:17:47 [facility] 2023-03-22 2023-03-22 Outpatient R DORY URBAN [facility] [id number] Univers 15:15:00 15:15:00 [facility] 2023-03-04 2023-03-04 Office Dory Urban [facility] [id number] Univers 16:00:00 16:25:19 Visit Jian ARCEO [id number] phil Tafoya [id number] Rommel mckee PROFESSIO [phone] [place] [address] 2023-03-04 2023-03-04 Nurse Anesthetist Paula Braun Lab Main [facility] 1.2.8 [id number] Univers 07:30:00 07:45:00 Visit Urban, Dory Cam [place] [id number] ity of [place] [id number] [place] PROF[place] [id number] [place] NAL [address] [facility] 2023-03-04 2023-03-04 Outpatient R DORY URBAN [facility] [id number] Univers 07:30:00 07:30:00 ity of [facility] 2023-02-25 2023-02-25 [facility] [id number] Univers 17:50:00 20:49:00 , AIDEE ity of [facility] 2023-02-25 2023-02-25 [facility] [id number] Univers 17:50:00 20:49:00 , Aidee MARIELOS [id number] i ty of [place] [id number] [place] C[place] [id number] [facility] [address] [place] [address] 2023-02-25 2023-02-25 Telephone Dory Urban [facility] [id number] Univers 00:00:00 00:00:00 Jian ARCEO [id number] i [place] [id number] PROF[place] [id number] [place] NAL 134 [facility] 2023-02-22 2023-02-22 Nurse Anesthetist Aparna, Adc Lab Main [facility] 1.2.8 [id number] [id number] Univers 11:30:00 11:45:00 Visit Dory Urban [id number] ity [id number] [id number] [place] NAL 353 [facility] 2023-02-22 2023-02-22 Outpatient R DORY URBAN [facility] [id number] Univers 11:30:00 11:30:00 ity of [facility] 2023-02-20 2023-02-20 Nurse Anesthetist Aparna, Adc Lab Main [facility] 1.2.8 [id number] [id number] Univers 11:15:00 11:30:00 Visit Dory Urban [id number] ity of [place] [id number] PROF[place] [id number] [place] NAL 353 [facility] 2023-02-20 2023-02-20 Outpatient R [place] URBANEN [facility] [id number] Univers 11:15:00 11:15:00 ity of [facility] 2023-02-18 2023-02-18 Nurse Anesthetist Paula Braun Lab Main [facility] 1.2.8 [id number] [id number] Univers 11:45:00 12:00:00 Visit Dory Urban Jian ARCEO [id number] ity of [place] [id number] [place] PROFESS[place] [id number] [place] NAL [address] [facility] 2023-02-18 2023-02-18 Outpatient R RAJNI DORY [facility] [id number] Univers 11:45:00 11:45:00 ity of [facility] 2023-02-18 2023-02-18 Initial Dory Urban [facility] [id number] Univers 10:00:00 10:22:08 Jian ARCEO 350.1.13.10 ity of [place].2.[place] [phone] [place] N[place] 134 [facility] 2023-02-18 2023-02-18 Orders Doctor WIN [id number] Univers 00:00:00 00:00:00 Only Unassigned, JUDY 350.1.13.10 ity of [place] [facility] 4.2.7.2.686 Rehan as [phone] [address] 2021-04-23 2021-04-23 Outpatient DICLEMENTE_ MEHOP [facility] [address] [place] 12:40:00 12:40:00 CE[facility]NA [facility] 2020-12-15 2020-12-15 Urgent EvaRosemary means [facility] 1.2.840 .114 [id number] Univers 16:40:37 17:02:34 [facility] 350.1.13.10 ity of [place] 4.2.7.2.686 Rehan as Professio [phone] [place] dical [facility] [address] [place] [address] 2020-12-15 2020-12-15 Outpatient R [facility] [id number] Univers 16:40:00 16:40:00 JING trevino [facility] 2020-03-11 2020-03-11 Emergency [facility] [id number] [facility] 07:47:00 08:13:00 Robert Arceo 350.1.13.10 i ty of [place] 4.2.7.2.686 [facility] [phone] [address] 2019-01-16 2019-01-16 [facility] 1.2.840.114 [id number] 13:09:56 14:08:48 Visit Celena Arceo 350.1.13.10 [place] 4.2.7.2.686 Professio [phone] [address] 2019-01-16 2019-01-16 Office [facility] 1.2.840.114 [id number] [facility] 13:09:56 14:08:48 Visit Celena Arceo 350.1.13.10 i ty of [place] 4.2.7.2.686 [facility] Professio [phone] [place] dical [facility] 134 [facility] 2019-01-15 2019-01-15 Emergency [facility] [id number] [facility] 10:56:49 12:30:00 Watson Arceo 350.1.13.10 i ty of [place] 4.2.7.2.686 [facility] [phone] [address] 2019-01-15 2019-01-15 Nurse WIN Ortega 1.2.840.114 [id number] Univers 00:00:00 00:00:00 Triage Oksana KIM 350.1.13.10 i ty of [facility] 4.2.7.2.686 Rehan as [phone] [address] Results Test Description Test Time Test Comments Results Result Comments Source HCG, QUANTITATIVE, 2023-03-04 23:21:59 Test Item Value Reference Range Interpretation Comme nts BETA HCG (test code = 93.66 See_Comment [Auto mated message] The 3710649343) system which ge nerated this result transmit bry reference range : Non- fe male and male patients: <5 mIU/mL. The reference r sarath was not used to interpr et this result as omar l/abnormal. LINK (test code = LINK) Gestational Age ?Range (mIU/mL) 1-10 ?Weeks ?47-51728598-21 Weeks ?15976-56305326-36 Weeks ?9556-88169306-80 Weeks ?2733-998611 Biotin has been reported to cause a negative bias, interpret results relative to patient's use of biotin. [facility] - ONCE [id number] 00:07:00 Test Item Value Reference Range Interpretation Comments ABO & RH (test code = 20) A Positive IAT (test code = 1185) Negative [facility] [id number] 14:49:00 Test Item Value Reference Range Interpretation Comments POCT PREG (test code = 1605) Positive On board controls acceptable with C Yes Line (test code = 3574) POCT PREG LOT # (test code = 3575) POCT PREG TEST DATE (test code = 3576) [facility]2019-08-18 17:28:00 Test Item Value Reference Range Interpretation Comments APPEARANCE (test code = Cloudy Clear A 5002597917) COLOR (test code = Red Yellow A 6484018424) PH (test code = 4.8-8.0 7527963689) SP GRAVITY (test code = 1.003-1.030 7512492249) GLU U QUAL (test code = Negative Negative 2176643697) BLOOD (test code = Large Negative A 0282027884) KETONES (test code = 40 mg/dL Negative A 2496731880) PROTEIN (test code = >300 mg/dL Negative A 2887-8) UROBILIN (test code = 2.0 mg/dL See_Comment A [Auto mated message] 5563979721) The system whic h generated this result transmit bry reference range : 0-1.0 mg/dL. Th e reference range was not used to interpret this result as normal/abnormal . BILIRUBIN (test code = Negative Negative 9426320489) NITRITE (test code = Positive Negative A 7056244275) LEUK MARIAN (test code = Moderate Negative A 7828172163) RBC/HPF (test code = See_Comment H [Autom ated message] 0801435923) The system [employer] generated this result transmit bry reference range : 0 - 3 HPF. The refe rence range was not u sed to interpret th is result as normal/abnormal . WBC/HPF (test code = See_Comment H [Autom ated message] 7176806673) The system [employer] generated this result transmit bry reference range : 0 - 5 HPF. The refe rence range was not u sed to interpret th is result as normal/abnormal . BACTERIA (test code = Moderate Negative A 0444945358) SQ EPITH (test code = HPF 9929882437) Lab Interpretation Abnormal (test code = 51999-8) [facility] Screen - ONCE [id number] 17:26:52 Test Item Value Reference Range Interpretation Comments ABO & RH (test code A Positive Performe d at [facility] = 20) Laboratory Serv [facility] [address] [place], [place] [address]Toll Free: [phone] A No. [id number] IAT (test code = Negative Performed a t [facility] 1185) Laboratory Serv [facility] [place], [place] [address]Toll Free: [phone] A No. [id number] [facility]woodT[facility] BETA HCG [id number] 17:06:00 Test Item Value Reference Range Interpretation Comments BETA HCG (test See_Comment [Automated m essage] code = The system [employer] 0612613418) generated this result transmit bry reference range : Non- fe male and male patien ts: <5 mIU/mL. The reference range was not used to interpret this result as normal/abnormal . LINK (test code Gestational = LINK) Age?Range (mIU/mL)1-10?Weeks?4 9-72613446-23 Weeks?78486-69504393 -22 Weeks?7480-96181554- 40 Weeks?1531-326857Dro tin has been reported to cause a negative bias, interpret results relative to patient's use of biotin. [facility]wood[facility]NC[facility] TEST, [id number] 16:55:00 Test Item Value Reference Range Interpretation Comments PREG SERUM (test code Negative = 8948080625) LINK (test code = LINK) Less than 10 IU/L.?If low titer or ectopic is suspected, resubmit specimen in 48-72 hours. [facility]wood[facility]PTT2019-08-18 16:53:00 Test Item Value Reference Range Interpretation Comments APTT Patient (test See_Comment [Automat ed code = 3173-2) message] The system which generated this result transmitted reference range : 23 - 38 Seconds . The reference range was not used to interpr et this result as normal/abnormal . LINK (test code = LINK) The [facility] patient population mean normal value for aPTT is 30 seconds. Lab Interpretation Normal (test code = 56632-2) [facility]woodProthrombin Time (PT) / [id number] 16:51:00 Test Item Value Reference Range Interpretation Comments PROTIME PATIENT (test See_Comment [Auto mated message] code = 5964-2) The system wh ich generated this result transmitted ref erence range: 12.0 - 1 4.7 Seconds. The re ference range was not u sed to interpret this result as normal/abnor mal. INR (test code = 6301-6) Nor mal INR <1.1; Warfarin Therap eutic range 2.0 to 3. 0 or 2.5 to 3.5, dep ending upon the indica tions. Lab Interpretation (test Normal code = 98953-1) [facility]wood[facility] Metabolic Panel (NA, K, CL, CO2, GLUCOSE, BUN, CREATININE, CA)2019-01-15 16:49:00 Test Item Value Reference Range Interpretation Comments NA (test code = 142 mmol/L 135-145 6572575935) K (test code = 3.8 mmol/L 3.5-5 3567850537) CL (test code = 109 mmol/L 98-108 H 8934844757) CO2 TOTAL (test code = 25 mmol/L 23-31 6459982786) AGAP (test code = 2-16 4024178494) BUN (test code = 11 mg/dL 7-23 7985380412) GLUCOSE (test code = 82 mg/dL 70-110 5471435215) CREATININE (test code = 0.69 mg/dL 0.5-1.04 7071265927) CALCIUM (test code = 8.9 mg/dL 8.6-10.6 3922424084) eGFR Calculation mL/min/1.73m2 (Non-) (test code = 7596431347) eGFR Calculation mL/min/1.73m2 () (test code = 0276437646) LINK (test code = LINK) Association of Glomerular Filtration Rate (GFR) and Staging of Kidney Disease*+ + + +| GFR (mL/min/1.73 m2)?| With Kidney Damage?|?Without Kidney Damage+ --------+ --------+ +|?>90?|?S tage one?|? Normal?+ ---------+ ---------+ +|?60-89? |?Stage two?|? Decreased GFR? + --+ --+ ------+|?30-59?|?Stage three?|? Stage three? + --+ --+ ------+|?15-29?|?Stage four? |? Stage four?+ -------+ -------+ +|?<15 (or dialysis)?|?Stage five? |? Stage five?+ -------+ -------+ +*Each stage assumes the associated GFR level has been in effect for at least three months.?Stages 1 to 5, with or without kidney disease, indicate chronic kidney disease.Notes: Determination of stages one and two (with eGFR >59mL/min/1.73 m2) requires estimation of kidney damage for at least three months as defined by structural or functional abnormalities of the kidney, manifested by either:Pathological abnormalities or Markers of kidney damage (including abnormalities in the composition of the blood or urine or abnormalities in imaging tests). Lab Interpretation Abnormal (test code = 49199-4) [facility]wood[facility] Function Panel (ALB, T.PRO, BILI T, BU/BC, ALT, AST, ALK PHOS)2019-01-15 16:49:00 Test Item Value Reference Range Interpretation Comments TOTAL BILI (test code = 6200377391) 0.7 mg/dL 0.1-1.1 BILI UNCON (test code = 7932966377) 0.8 mg/dL 0.1-1.1 BILI CONJ (test code = 5327731564) 0.0 mg/dL 0-0.3 T PROTEIN (test code = 4695281722) 7.4 g/dL 6.3-8.2 ALBUMIN (test code = 0374876653) 4.3 g/dL 3.5-5 ALK PHOS (test code = 9210317303) 50 U/L 34-122 ALT(SGPT) (test code = 2176331133) 13 U/L 9-51 AST(SGOT) (test code = 7335036936) 21 U/L 13-40 Lab Interpretation (test code = Normal 82601-9) [facility]woodPO[facility] [id number] 16:44:00 Test Item Value Reference Range Interpretation Comments POCT PREG (test code = 1605) negative On board controls acceptable with C present Line (test code = 3574) Lab Interpretation (test code = Normal 60516-4) [facility] KingwoodCBC WITH [id number] 16:35:00 Test Item Value Reference Range Interpretation Comments WBC (test code = See_Comment [Automated 7490-2) message] The sy stem which generated this result transmitted reference range : 4.30 - 11.10 10*3/?L. The reference range was not used to interpret this result as normal/abnormal . RBC (test code = See_Comment [Automated 827-8) message] The sy stem which generated this result transmitted reference range : 3.93 - 5.25 10*6/?L. The reference range was not used to interpret this result as normal/abnormal . HGB (test code = 13.0 g/dL 11.6-15 718-7) HCT (test code = 39.9 % 35.7-45.2 4544-3) MCV (test code = 81.9 fL 80.6-95.5 787-2) MCH (test code = 26.7 pg 25.9-32.8 785-6) MCHC (test code = 32.6 g/dL 31.6-35.1 786-4) RDW-SD (test code = 39.7 fL 39-49.9 52648-6) RDW-CV (test code = 13.4 % 12-15.5 788-0) PLT (test code = See_Comment [Automated 777-3) message] The sy stem which generated this result transmitted reference range : 166 - 358 10*3/ ?L. The reference r sarath was not used to interpret this result as normal/abnormal . MPV (test code = 9.2 fL 9.5-12.9 L 53736-3) NRBC/100 WBC (test See_Comment [Automat ed code = 2982541734) message] The system which generated this result transmitted reference range : 0.0 - 10.0 /100 WBCs. The refer ence range was not u sed to interpret th is result as normal/abnormal . NRBC x10^3 (test code <0.01 See_Comment [Auto mated = 7770122486) message] The s ystem which generated this result transmitted reference range : 10*3/?L. The reference range was not used to interpret this result as normal/abnormal . GRAN MAT (NEUT) % 67.0 % (test code = 770-8) IMM GRAN % (test code 0.20 % = 0178469861) LYMPH % (test code = 20.2 % 736-9) MONO % (test code = 10.5 % 5905-5) EOS % (test code = 1.6 % 713-8) BASO % (test code = 0.5 % 706-2) GRAN MAT x10^3(ANC) 2.88 10*3/uL 1.88-7.09 (test code = 8114095097) IMM GRAN x10^3 (test <0.03 0-0.06 code = 9876713494) LYMPH x10^3 (test code 0.87 10*3/uL 1.32-3.29 L = 731-0) MONO x10^3 (test code 0.45 10*3/uL 0.33-0.92 = 742-7) EOS x10^3 (test code = 0.07 10*3/uL 0.03-0.39 711-2) BASO x10^3 (test code <0.03 0.01-0.07 = 704-7) Lab Interpretation Abnormal (test code = 38222-6) [facility]"
[2023-03-07] MEDS ORDERED: FAMOTIDINE 20 MG/2 ML VIAL IV ONE (10:25)
[2023-03-07] MEDS ORDERED: NA CHLORIDE 0.9% 1,000 ML ONE (10:25)
[2023-03-07] MEDS ORDERED: dexAMETHasone 10 MG/ML VIAL ONE (10:25)
[2023-03-07] MEDS ORDERED: DIPHENHYDRAMINE 50 MG/ML VIAL ONE (10:26)
--- NOTE | 2023-03-07 10:44 | ER ---
Nurse's Notes [facility] Name: Jade Alvarado Age: 32 yrs Sex: Female : 1990 Arrival Date: 03/07/2023 Time: 09:57 Bed 5 Private MD: Diagnosis: Urticaria, unspecified Presentation: 03/07 10:16 Chief complaint: Patient states: Rash with itching to body started last night. On ll1 cefdinir for UTI. Coronavirus screen: Client denies travel out of the [place] in the last 14 days. At this time, the client does not indicate any symptoms associated with coronavirus-19. Ebola Screen: Patient denies travel to an Ebola-affected area in the 21 days before illness onset. Onset: The symptoms/episode began/occurred last night. Anaphylaxis evaluation, no signs or symptoms of anaphylaxis were noted. Initial Sepsis Screen: Does the patient meet any 2 criteria? HR > 90 bpm. No. Patient's initial sepsis screen is negative. Does the patient have a suspected source of infection? No. Patient's initial sepsis screen is negative. Risk Assessment: Do you want to hurt yourself or someone else? Patient reports no desire to harm self or others. Onset of symptoms was March 06, 2023. 10:16 Method Of Arrival: Ambulatory ll1 10:16 Acuity: PRECIOUS 3 ll1 Triage Assessment: 10:06 General: Appears uncomfortable, Behavior is calm, cooperative, appropriate for age. ll1 Pain: Denies pain. Derm: Reports rash/hives to body with itching. Historical: - Allergies: 10:15 Codeine; ll1 10:15 Gluten Protein; ll1 10:15 Hydrocodone-Acetaminophen; ll1 - PMHx: 10:15 gestational diabetes; ll1 - PSHx: 10:15 section; eye SX; ll1 - Immunization history:: Adult Immunizations up to date. - Social history:: Smoking status: Patient denies any tobacco usage or history of. Screenin:25 [facility] ED Fall Risk Assessment (Adult) Score/Fall Risk Level 0 - 2 = Low Risk nj1 Oriented to surroundings, Maintained a safe environment, Hourly rounding (assess needs \T\ fall precautionary measures) done. Abuse screen: Denies threats or abuse. Denies injuries from another. Nutritional screening: No deficits noted. Tuberculosis screening: No symptoms or risk factors identified. Assessment: 10:15 Respiratory: Airway is patent Respiratory effort is even, unlabored. nj1 10:24 Reassessment: See triage assessment. nj1 Vital Signs: 10:16 BP 128 / 92; Pulse 119; Resp 18; Temp 97.6; Pulse Ox 100% on R/A; Weight 57.15 kg; ll1 Height 4 ft. 11 in. ; Pain 0/10; 10:16 Body Mass Index 25.45 (57.15 kg, 149.86 cm) 1 10:16 Pain Scale: Adult [facility] ED Course: 09:58 Patient arrived in ED. rg4 09:59 Gracia Quintana FNP-C is [facility] kb 09:59 Panfilo Sanford MD is Attending Physician. kb 10:05 Arm band placed on Patient placed in an exam room, on a stretcher. 1 10:08 Serenity Pena, MARIA LUISA is Primary Nurse. nj1 10:15 Patient has correct armband on for positive identification. Bed in low position. Call [facility] light in reach. Provided Education on: call light, fall precautions, medications administered.. 10:18 Triage completed. 1 Administered Medications: 10:15 Drug: NS 0.9% IV 1000 ml IV at 1000 ml once Route: IV; Rate: 1000 ml; Site: right mn1 antecubital; 10:15 Drug: diphenhydrAMINE IVP 12.5 mg IVP once Route: IVP; Site: right antecubital; nj1 10:16 Drug: Decadron - Dexamethasone IVP 10 mg IVP once Route: IVP; Site: right antecubital; nj1 10:18 Drug: Famotidine IVP 20 mg IVP once; dilute with 10 mL 0.9% NaCl; give over 2 minutes [facility] Route: IVP; Site: right antecubital; Outcome: 10:43 Discharge ordered by MD. kb 11:18 Patient left the ED. hb Signatures: Gracia Quintana FNP-C FNP-Rosana Amin RN RN Yvonne Sanchez rg4 Ant Mcgregor RN RN 1 Serenity Pena RN RN [facility]
--- NOTE | 2023-03-07 10:44 | EDPHYS ---
Physician Documentation [facility] Name: Jade Alvarado Age: 32 yrs Sex: Female : 1990 Arrival Date: 03/07/2023 Time: 09:57 Bed 5 Private MD: ED Physician Panfilo Sanford HPI: 03/07 10:41 This 32 yrs old Female presents to ER via Ambulatory with complaints of Allergic kb Reaction. 10:41 The patient presents with itching, rash. Onset: The symptoms/episode began/occurred kb this morning. Associated signs and symptoms: Pertinent positives: hives. Possible causes: antibiotics, cephalosporin. At home the patient or guardian has treated the symptoms with Benadryl. Severity of symptoms: At their worst the symptoms were moderate in the emergency department the symptoms are unchanged. The patient has not experienced similar symptoms in the past. The patient has not recently seen a physician. Historical: - Allergies: 10:15 Codeine; ll1 10:15 Gluten Protein; ll1 10:15 Hydrocodone-Acetaminophen; ll1 - PMHx: 10:15 gestational diabetes; ll1 - PSHx: 10:15 section; eye SX; ll1 - Immunization history:: Adult Immunizations up to date. - Social history:: Smoking status: Patient denies any tobacco usage or history of. ROS: 10:39 Constitutional: Negative for fever, chills, and weight loss, kb 10:39 Skin: Positive for rash, diffusely, 10:39 All other systems are negative, Exam: 10:39 Constitutional: This is a well developed, well nourished patient who is awake, alert, kb and in no acute distress. Head/Face: Normocephalic, atraumatic. ENT: Moist Mucous membranes Cardiovascular: Regular rate Respiratory: Respirations even and unlabored. No increased work of breathing. Talking in full sentences MS/ Extremity: Pulses equal, no cyanosis. Neurovascular intact. Full, normal range of motion. Neuro: Awake and alert, GCS 15, oriented to person, place, time, and situation. Moves all extremities. Normal gait. 10:39 Skin: rash a moderate rash is noted, rash can be described as urticarial, consistent with urticaria, and is diffusely located, Vital Signs: 10:16 BP 128 / 92; Pulse 119; Resp 18; Temp 97.6; Pulse Ox 100% on R/A; Weight 57.15 kg; ll1 Height 4 ft. 11 in. ; Pain 0/10; 10:16 Body Mass Index 25.45 (57.15 kg, 149.86 cm) ll1 10:16 Pain Scale: Adult ll1 MDM: 09:59 Patient medically screened. kb 10:41 Differential diagnosis: anaphylaxis, non IgE mediated drug reaction urticaria. Data kb reviewed: vital signs, nurses notes. Counseling: I had a detailed discussion with the patient and/or guardian regarding the historical points, exam findings, and any diagnostic results supporting the discharge/admit diagnosis, the need for outpatient follow up, a family practitioner, to return to the emergency department if symptoms worsen or persist or if there are any questions or concerns that arise at home. Response to treatment: the patient's symptoms have markedly improved after treatment. 03/07 10:03 Order name: IV Start; Complete Time: 10:12 kb Administered Medications: 10:15 Drug: NS 0.9% IV 1000 ml IV at 1000 ml once Route: IV; Rate: 1000 ml; Site: right nj1 antecubital; 10:15 Drug: diphenhydrAMINE IVP 12.5 mg IVP once Route: IVP; Site: right antecubital; nj1 10:16 Drug: Decadron - Dexamethasone IVP 10 mg IVP once Route: IVP; Site: right antecubital; nj1 10:18 Drug: Famotidine IVP 20 mg IVP once; dilute with 10 mL 0.9% NaCl; give over 2 minutes nj1 Route: IVP; Site: right antecubital; Disposition: 18:06 Co-signature as Attending Physician, Panfilo Sanford MD I reviewed the patient's care rn provided by the Advanced Practice Provider and agree with the diagnosis and treatment plan. Disposition Summary: 03/07/23 10:43 Discharge Ordered Notes: Location: Home kb Condition: Stable kb Diagnosis - Urticaria, unspecified kb Followup: kb - With: Emergency Department - When: As needed - Reason: Worsening of condition Followup: kb - With: Private Physician - When: 2 - 3 days - Reason: Recheck today's complaints, Continuance of care, Re-evaluation by your physician Discharge Instructions: - Discharge Summary Sheet kb - Hives, [id number] kb Forms: - Medication Reconciliation Form kb - Thank You Letter kb - Antibiotic Education kb - Prescription Opioid Use kb - Patient Portal Instructions kb - Leadership Thank You Letter kb - Work release form eb Prescriptions: - Pepcid 20 mg Oral Tablet - take 1 tablet ORAL route every 12 hours for 5 days; 10 tablet; Refills: 0, kb Product Selection Permitted - Prednisone 20 mg Oral Tablet - take 1 tablet ORAL route once daily for 5 days; 5 tablet; Refills: 0, Product kb Selection Permitted Signatures: Gracia Quintana FNP-C FNP-Ckb Nieto, Roman, MD MD rn Lewis, Lynsay, RN RN ll1 Serenity Pena RN RN nj1
[2023-03-07 11:23] VITALS: BP 128/92; TEMP 97.6; O2SAT 100
== END 2023-03-07 11:18 | disposition home or self-care (01) ==
LOC: ER 09:57
DX: L50.9 Urticaria, unspecified (principal); Z91.018 Allergy to other foods
CPT/HCPCS: 96375; 96374; 99283; J1200; J1100; J7030